=== PATIENT | female | born 1990 | race Asian ===

== ENCOUNTER 2022-10-17 07:57 | Outpatient (CLI) | payer BC | END 2022-10-17 18:58 | disposition home or self-care (01) | LOC: MRI 07:57 | PROVIDERS: ATTEND Podiatrist | DX: M84.377D Stress fracture, right toe(s), subsequent encounter for fracture with routine healing (principal); G57.61 Lesion of plantar nerve, right lower limb | CPT/HCPCS: A9576 ==